=== PATIENT | male | born 1990 | race Caucasian/White ===

== ENCOUNTER 2017-04-08 11:06 | Emergency (ER) | payer OTHER ==
[~2017-04-08] VITALS: Ht 172.7 cm; Wt 96.2 kg
[2017-04-08] MEDS ORDERED: IBUPROFEN400 MG ORAL (12:13)
[2017-04-08] MEDS ORDERED: NICODERM CQ1 EAC1 TD (12:17)
[2017-04-08 12:21] VITALS: BP 123/77
[2017-04-08 12:22] VITALS: BP 123/77
--- NOTE | 2017-04-08 14:07 | Diagnostic Imaging Report ---
Indication: PAIN Technique: 3 views right foot Comparison: none Findings: There is mild of [place]. Otherwise normal bony alignment. No acute fractures. No dislocations. The joint spaces are preserved Impression: Negative This agrees with the preliminary interpretation provided by the emergency room physician
--- NOTE | 2017-04-08 14:07 | Diagnostic Imaging Report ---
Indication: PAIN Technique: 3 views right foot Comparison: none Findings: There is mild of [place]. Otherwise normal bony alignment. No acute fractures. No dislocations. The joint spaces are preserved Impression: Negative This agrees with the preliminary interpretation provided by the emergency room physician
--- NOTE | 2017-04-08 14:13 | Emergency Room Report ---
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 He presents emergency department today complaining of right foot pain. He has of right foot anterior swelling. He noticed that more over last couple of days and it seems to be rubbing up against his foot and shoes. He denies any other injuries. He is concerned that this might be a bone growth or cancer. No other complaints were noted.No other modifying factors. No other associated signs and symptoms. No other complaints were noted. Allergies: Uncoded Allergies: IV CONTRAST (Allergy, Unknown, 04/08/17) Patient History Past Medical History: none Past Surgical History: none Pertinent Family History: none Social History: Denies: smoking, alcohol use, drug use Reviewed Nursing Documentation: PMH: Agreed, PSxH: Agreed Nursing Documentation-PMH Past Medical History: No History, Except For Review of Systems All Other Systems: negative except mentioned in HPI Physical Exam Vital Signs Date Time Temp Pulse Resp B/P (MAP) Pulse Ox O2 Delivery O2 Flow Rate FiO2 04/08/17 11:20 97.9 69 16 126/72 100 Room Air Sp02 EP Interpretation: reviewed, normal General Appearance: normal inspection, well appearing, no apparent distress, alert Head: atraumatic Eyes: bilateral eye normal inspection ENT: normal ENT inspection, hearing grossly normal, normal voice Neck: normal inspection, full range of motion, supple, no bony tend Respiratory: normal inspection, lungs clear, normal breath sounds, no respiratory distress, no retraction, no wheezing Cardiovascular #1: regular rate, rhythm, no edema Gastrointestinal: normal inspection, normal bowel sounds, non tender, soft, no guarding, no hernia Genitourinary: no CVA tenderness Musculoskeletal: back normal, swelling - tender right foot anterior midfoot Neurologic: normal inspection, alert, responsive, speech normal Psychiatric: normal inspection, judgement/insight normal, mood/affect normal Skin: normal inspection, normal color, no rash Medical Decision Making Diagnostic Impression: Primary Impression: Foot pain, right Additional Impression: Encounter for generalized patient complaints ER Course Patient presents emergency department today complaining of right foot pain. Differential considerations include fracture dislocation versus strain versus bone growth. Patient's x-rays benign. Patient's exam is benign. I felt the patient can be discharged home. Recommend pain medications and outpatient followup.Patient is advised to follow up with primary doctor in 2-3 days and return the emergency room for any worsening symptoms and as needed. Other X-Ray Diagnostic Results Other X-Ray Diagnostic Results : # of Views/Limited Vs Complete: 3 View Indication: Pain EP Interpretation: Yes Interpretation: no dislocation, no soft tissue swelling, no fractures, nonspecific bowel gas Impression: No acute disease Last Vital Signs Date Time Temp Pulse Resp B/P (MAP) Pulse Ox O2 Delivery O2 Flow Rate FiO2 04/08/17 12:22 97.8 18 123/77 96 Room Air 04/08/17 12:21 72 Status: improved Disposition: HOME, SELF-CARE Condition: Stable Scripts Nicotine 14MG Patch* (NICODERM CQ 14MG*) 1 Each Patch.td24 1 EACH TD DAILY, #50 EA Prov: BRISEIDA LOCKE M.D. 04/08/17 Ibuprofen* (MOTRIN*) 400 Mg Tablet 400 MG ORAL Q6H, #20 TAB 0 Refills Prov: BRISEIDA LOCKE M.D. 04/08/17 Referrals: [facility],REFERRING (PCP) Patient Instructions: Foot Sprain BRISEIDA LOCKE M.D. Apr 08, 2017 14:13
== END 2017-04-08 12:50 | disposition home or self-care (01) ==
LOC: EMR 12:20
DX: M79.671 Pain in right foot (principal); Z91.041 Radiographic dye allergy status
CPT/HCPCS: 99284

== ENCOUNTER 2017-07-23 12:01 | Emergency (ER) | payer OTHER ==
[~2017-07-23] VITALS: Ht 172.7 cm; Wt 93.0 kg
[~2017-07-23 12:01] MED LIST: IBUPROFEN400 MG ORAL; NICODERM CQ1 EAC1 TD
[2017-07-23] MEDS ORDERED: SEROQUEL100 MG ORAL (12:24)
[2017-07-23 12:44] VITALS: BP 110/75
[2017-07-23 12:45] VITALS: BP 110/75
--- NOTE | 2017-07-24 15:33 | Emergency Room Report ---
History of Present Illness General Chief Complaint: Medication Refill Source: Patient Present Illness HPI 27-year-old male presents ED for medication refill. States he takes Seroquel but ran out of his prescription. Unable to reach his physician. patient takes Seroquel 100 mg at night. History of anxiety and depression. Denies any suicidal or homicidal ideation. Denies hearing voices. No other aggravating relieving factors. Denies any other associated symptom Allergies: Uncoded Allergies: IV CONTRAST (Allergy, Unknown, 04/08/17) Patient History Past Medical History: psych hx Past Surgical History: none Pertinent Family History: none Social History: Denies: smoking, alcohol use, drug use Immunizations: UTD Reviewed Nursing Documentation: PMH: Agreed, PSxH: Agreed Nursing Documentation-PMH Past Medical History: No History, Except For History Of Psychiatric Problem: Yes - Anxiey, insomnia Hx Seizures: Yes Review of Systems All Other Systems: negative except mentioned in HPI Physical Exam Vital Signs Date Time Temp Pulse Resp B/P (MAP) Pulse Ox O2 Delivery O2 Flow Rate FiO2 07/23/17 12:04 98.0 102 14 110/75 96 Room Air 98.1 Sp02 EP Interpretation: reviewed, normal General Appearance: no apparent distress, alert, GCS 15, non-toxic Head: normocephalic, atraumatic Eyes: bilateral eye normal inspection, bilateral eye PERRL ENT: hearing grossly normal, normal pharynx, no angioedema, normal voice Neck: full range of motion, supple/symm/no masses Respiratory: chest non-tender, lungs clear, normal breath sounds, speaking full sentences Cardiovascular #1: regular rate, rhythm, no edema Cardiovascular #2: 2+ carotid (R), 2+ carotid (L), 2+ radial (R), 2+ radial (L) , 2+ dorsalis pedis (R), 2+ dorsalis pedis (L) Gastrointestinal: normal bowel sounds, non tender, soft, non-distended, no guarding, no rebound Rectal: deferred Genitourinary: normal inspection, no CVA tenderness Musculoskeletal: back normal, gait/station normal, normal range of motion, non- tender Neurologic: alert, oriented x3, responsive, motor strength/tone normal, sensory intact, speech normal Psychiatric: judgement/insight normal, memory normal, mood/affect normal, no suicidal/homicidal ideation Reflexes: 3+ bicep (R), 3+ bicep (L), 3+ tricep (R), 3+ tricep (L), 3+ knee (R) , 3+ knee (L) Skin: normal color, no rash, warm/dry, well hydrated Lymphatic: no adenopathy Medical Decision Making Diagnostic Impression: Primary Impression: Encounter for medication refill ER Course 27-year-old male presents to ED refill of her medication. takes seroquel hospital course: After initial history and physical, he produces pill bottle which documents Seroquel being prescribed to him. Given that, I tell patient I will refill his Seroquel prescription Diagnosis-encounter for medication refill Stable and discharged to home with prescription for Seroquel. Followup with PMD. Return to ED if symptoms recur or worsen Last Vital Signs Date Time Temp Pulse Resp B/P (MAP) Pulse Ox O2 Delivery O2 Flow Rate FiO2 07/23/17 12:45 98.0 14 110/75 96 Room Air 98.1 07/23/17 12:04 102 Status: improved Disposition: HOME, SELF-CARE Condition: Stable Scripts Quetiapine Fumarate* (SEROQUEL*) 100 Mg Tablet 100 MG ORAL DAILY, #30 TAB Prov: JAXSON AGUIRRE M.D. 07/23/17 Referrals: [facility],REFERRING (PCP) Patient Instructions: Medicine Refill at the Emergency Department JAXSON AGUIRRE M.D. Jul 24, 2017 15:33
== END 2017-07-23 12:46 | disposition home or self-care (01) ==
LOC: EMR 12:24
DX: Z76.0 Encounter for issue of repeat prescription (principal); F41.9 Anxiety disorder, unspecified; F32.9 Major depressive disorder, single episode, unspecified; Z86.69 Personal history of other diseases of the nervous system and sense organs
CPT/HCPCS: 99281